=== PATIENT | male | born 2000 | race African-American/Black ===

== ENCOUNTER 2025-08-24 01:34 | Emergency (ER) | payer SELFPAY ==
[2025-08-24 01:39] VITALS: BP 148/78; PULSE 67; TEMP 36.7; O2SAT 97; BMI 26.0
--- OUTSIDE RECORDS SUMMARY | 2025-08-24 01:41 | XMS_ITS | Clinical Summary ---
Author Organization [employer] tem Address [id number] [place] [address] Care Team Providers Care Aging Box Hand Name Role Phone Johnny Barker Primary Care Provider Unavacharissa lable Allergies No known active allergies Medications SUMAtriptan (IMITREX) 100 mg tabletIndicatio ns:Migraine without aura and with status migrainosus, not intractable,Syn cope and collapse May repeat in 2 hours if unresolved. Do not exceed 200 mg in 24 hours. 10 tablet 2 8 Active naproxen sodium (ALEVE) 220 mg tabletIndicatio ns:Migraine without aura and with status migrainosus, not intractable,Syn cope and collapse Take 3 tablets with acute attack of migraine. 40 tablet 2 8 Active diphenhydrAMINE (BENADRYL) 25 mg capsuleIndicati ons:Migraine without aura and with status migrainosus, not intractable,Syn cope and collapse Take 2 capsules (50 mg total) by mouth as needed (Acute attack of migraine). 24 capsule 2 8 Active midazolam HCl/PF (MIDAZOLAM, PF,) 5 mg/mL cartridgeIndica tions:Seizure ([facility]) 1 mL by INTRANASAL each nostil as needed for seizure > 3 minutes. 2 Syringe 1 8 Active Active Problems Problem Noted Date Diagnosed Date Syncope and collapse 03/16/2018 Alteration of awareness 03/16/2018 Migraine without aura 03/16/2018 Family History Medical History Relation Name Comments Diabetes Brother Multiple sclerosis Maternal Grandmother Neurofibromatosis Mother Relation Name Status Comments Brother Maternal Grandmother Mother Alive Social History Tobacco Use Types Packs/Day Years Used Date Smoking Tobacco: Never Smokeless Tobacco: Never Alcohol Use Standard Drinks/Week Comments No 0 (1 standard drink = 0.6 oz pur e alcohol) Childcare Answer Date Recorded Childcare Unknown 04/27/2019 Employment Answer Date Recorded Employment Unknown 04/27/2019 Purpose - Life Answer Date Recorded Purpose and direction in life Unknown Sex and Gender Information Value Date Recorded Sex Assigned at Not on file Legal Sex Male 9:10 AM EDT Gender Identity Not on file Sexual Orientation Not on file Last Filed Vital Signs Vital Sign Reading Time Taken Comments Blood Pressure 110/40 03/16/2018 4:46 PM EDT Pulse 72 03/16/2018 4:25 PM EDT Temperature - - Respiratory Rate - - Oxygen Saturation - - Inhaled Oxygen Concentration - - Weight 88.5 kg (195 lb) 03/16/2018 4:25 PM EDT Height 198.1 cm (6' 6 ) 03/16/2018 4:25 PM EDT Body Mass Index 22.53 03/16/2018 4:25 PM EDT Plan of Treatment Health Maintenance Due Date Last Done Comments Depression Screening 2013 Tobacco Screening 2013 Adult BMI Screening 2019 DTaP,Tdap and Td Vaccines (1 - Tdap) 2020 Influenza Vaccine 07/23/2025 Medical Devices Not on file Insurance [employer] Care Teams Aging Box Hand Relationship Specialty Start Date End Date Johnny Barker DO PCP - General 03/16/18
--- NOTE | 2025-08-24 01:49 | ECG_ITS ---
[facility] [place] [facility] Test Date: 2025-08-24 Pat Name: ANCA MALIK Department: Room: - Gender: Male [employer]: : 2000 Requested By: [id number] Order Number: [id number] Reading MD: CHERI VERA M.D. Measurements Intervals [place] Rate: 60 P: 49 FL: 154 QRS: 98 QRSD: 96 T: 31 QT: 398 QTc: 399 Interpretive Statements 1100 Sinus rhythm 2440 Incomplete right bundle branch block 7102 Moderate right axis deviation 9130 borderline ECG Compared to ECG 02/12/2022 20:24:53 Incomplete right bundle-branch block now present Sinus arrhythmia no longer present Electronically Signed On 08-24-2025 18:43:30 EDT by CHERI VERA M.D.
--- NOTE | 2025-08-24 01:50 | ED.GENADUL1 ---
HPI HPI - General Adult General Chief complaint: Headache Stated complaint: POSS HIGH BP Time Seen by Provider: 08/24/25 01:35 Source: patient Mode of arrival: walk-in Limitations: no limitations History of Present Illness HPI narrative: 25-year-old male presenting to the emergency department with a concern that his blood pressure is high. He has been out of his blood pressure medicine for a week and a half because he has been working so much he has not been able to get into his doctor. He had some funny feeling on the left side of his chest for few days. No fever vomiting or shortness of breath. Related Data Home Medications ?Medication ?Instructions ?Recorded ?Confirmed irbesartan 300 mg tablet 300 mg PO .daily. 08/24/25 08/24/25 Previous Rx's ?Medication ?Instructions ?Recorded irbesartan 300 mg tablet 300 mg PO DAILY #30 tabs 08/24/25 Allergies Allergy/AdvReac Type Severity Reaction Status Date / Time No Known Drug Allergies Allergy Verified 08/24/25 01:45 Opioid HPI Opioid Management Most Recent Opioid Data: Last Pain Scale 6 Today, 01:39 Review of Systems ROS Narrative A ten point review of systems is negative except as noted above. PFSH PFSH Social History Little interest or pleasure in doing things: not at all Feeling down, depressed, or hopeless: not at all Exam Narrative Exam Narrative: Nurses note and vital signs reviewed and patient is not hypoxic. General:The patient appears well and in no apparent distress.Patient is resting comfortably on cart. Skin:Warm, dry, no pallor noted.There is no rash noted. Head:Normocephalic, atraumatic Eye: Normal conjunctiva, no drainage Ears, Nose, Mouth, and Throat: oral mucosa is moist. Nares patent. Cardiovascular:Regular Rate and Rhythm Respiratory:Patient is in no distress, no accessory muscle use, lungs are clear to auscultation, no wheezing, rales or rhonchi Back:non-tender GI: Soft and nontender Musculoskeletal: The patient has no evidence of calf tenderness, no pitting edema, symmetrical pulses noted bilaterally Neurological: Awake alert and oriented Psychiatric:Cooperative Constitutional Vital Signs, click to edit/add: Last Vital Signs Temp 98.0 F 08/24/25 01:39 Pulse 67 08/24/25 01:39 Resp 16 08/24/25 01:39 BP 148/78 H 08/24/25 01:39 Pulse Ox 97 08/24/25 01:39 O2 Del Method Room Air 08/24/25 01:39 Course Vital Signs Vital signs: Vital Signs Temperature 98.0 F 08/24/25 01:39 Pulse Rate 67 08/24/25 01:39 Respiratory Rate 16 08/24/25 01:39 Blood Pressure 148/78 H 08/24/25 01:39 Pulse Oximetry 97 08/24/25 01:39 Oxygen Delivery Method Room Air 08/24/25 01:39 Temperature 98.0 F 08/24/25 01:39 Pulse Rate 67 08/24/25 01:39 Respiratory Rate 16 08/24/25 01:39 Blood Pressure 148/78 H 08/24/25 01:39 Pulse Oximetry 97 08/24/25 01:39 Oxygen Delivery Method Room Air 08/24/25 01:39 Medical Decision Making MDM Narrative Medical decision making narrative: His blood pressure is not significantly elevated. EKG on my interpretation shows normal sinus rhythm and he is given a 1 month supply of his blood pressure medication by prescription. Treatment diagnosis and follow-up were discussed with the patient. Differential Diagnosis Differential Diagnosis: Hypertension, medication refill ECG Data Attestation: I personally reviewed and interpreted this ECG as follows: (EKG on my interpretation shows sinus rhythm with rate of 60) Discharge Plan Discharge Chief Complaint: Headache Clinical Impression: Medication refill Patient Disposition: Home, Self-Care Time of Disposition Decision: 02:03 Condition: Good Mode of Transportation: Private Vehicle Prescriptions / Home Meds: New irbesartan 300 mg tablet 300 mg PO DAILY Qty: 30 0RF No Action irbesartan 300 mg tablet 300 mg PO .daily. Print Language: Mauritanian Instructions: Medicine Refill (ED) Referrals: NUNO ROBIN [Primary Care Provider, Family Practice] - 1 week
[2025-08-24 02:01] VITALS: PULSE 60
[2025-08-24 02:09] VITALS: BP 145/78; PULSE 70; O2SAT 97
== END 2025-08-24 02:12 | disposition home or self-care (01) ==
PROVIDERS: Emergency Provider Emergency Medicine; PCP Nurse Practitioner Family
DX: Z76.0 Encounter for issue of repeat prescription (principal)
CPT/HCPCS: 93005; 99283